=== PATIENT | male | born 1965 | race Caucasian/White ===

== ENCOUNTER → 2020-12-13 | Outpatient (CLI) | payer OTHER ==
[~2020-12-13] MED LIST: GLUCOPHAGE XR750 MG PO; LIPITOR 20 MG T20 M1 PO; LISINOPRIL20 MG PO; NAPROSYN500 M1 PO
[2020-12-13 14:30] VITALS: BP 140/80
[2020-12-13 15:17] VITALS: BP 140/80
--- NOTE | 2020-12-13 15:46 | NUR ---
HERE FOR ONE TIME ONLY DOSE OF DALBAVANCIN. REPORTS DOING WELL. DENIES N/V/DIARRHEA, FEVER/CHILLS. RLE WRAPPED SO NOT ASSESSED. TOLERATED INFUSION OVER 30 MIN WITHOUT INCIDENT, NO S/S REACTION. HAS APPT TO F/U WITH DR. MCDONALD AGAIN NEXT WEEK. 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 DISMISSED IN STABLE CONDITION.
== END ==
LOC: OPONC 13:48
PROVIDERS: ATTEND Specialist
DX: B35.3 Tinea pedis (principal); E11.8 Type 2 diabetes mellitus with unspecified complications; L03.115 Cellulitis of right lower limb
CPT/HCPCS: 95000